=== PATIENT | female | born 1975 | race African-American/Black ===

== ENCOUNTER 2020-05-04 12:10 | Emergency (ER) | payer SELFPAY ==
[~2020-05-04] VITALS: Ht 167.6 cm; Wt 109.0 kg
[2020-05-04 12:20] VITALS: BP 138/73
== END 2020-05-04 14:35 | disposition left against medical advice (07) ==
LOC: ER 12:22
DX: R55 Syncope and collapse (principal); R10.13 Epigastric pain; R73.9 Hyperglycemia, unspecified; Z90.49 Acquired absence of other specified parts of digestive tract; Z88.0 Allergy status to penicillin
CPT/HCPCS: 99283